=== PATIENT | male | born 1970 | race Caucasian/White ===

== ENCOUNTER → 2016-12-03 | Outpatient (CLI) | payer MEDICARE, OTHER ==
[~2016-12-03] MED LIST: ASPIRIN EC81 MG PO; PROTONIX40 MG PO; ZESTRIL40 MG PO
== END ==
LOC: LBRF 14:32 → RAD 14:32
DX: M15.9 Polyosteoarthritis, unspecified (principal); M50.322 Other cervical disc degeneration at C5-C6 level; M50.323 Other cervical disc degeneration at C6-C7 level
CPT/HCPCS: 72050; 72072

== ENCOUNTER → 2016-12-19 | Outpatient (CLI) | payer MEDICARE, OTHER ==
[2016-12-19 10:54] LABS: GLUCOSE,CSF 75 mg/dL (50-80); TOTAL PROTEIN,CSF 34 mg/dL (20-45)
== END ==
LOC: RAD 08:00
PROVIDERS: Nurse Practitioner
DX: G72.9 Myopathy, unspecified (principal); M15.9 Polyosteoarthritis, unspecified; M54.9 Dorsalgia, unspecified; I50.9 Heart failure, unspecified; M48.8X9 Other specified spondylopathies, site unspecified
CPT/HCPCS: 36415; 77003; 82040; 82784; 82945; 83873; 83916; 84157; 87015; 87070; 87116; 87205; 87210; 89051

== ENCOUNTER → 2020-08-31 | Outpatient (CLI) | payer MEDICARE, OTHER ==
[~2020-08-31] VITALS: Ht 182.9 cm; Wt 118.4 kg
[~2020-08-31] MED LIST changes: +AMBIEN10 MG PO; +ATORVASTATIN CA40 MG PO; +CYCLOBENZAPRINE10 MG PO; +GLUCOPHAGE XR500 MG PO; +IBUPROFEN600 MG PO; +LIPITOR TAB 2020 MG PO; +LISINOPRIL5 MG PO; +NEXIUM40 MG PO; +NITROGLYCERIN0.4 MG SL; +PAXIL40 MG PO; +PERCOCET 7.5-31 EACH PO; +RANEXA1000 MG PO; +SYNTHROID50 MCG PO; +TESTOSTERO200 MG/1 M IM; +TOPROL XL25 MG PO; +ZOFRAN ODT4 MG PO; +ZOLOFT25 MG PO; +[UNRECOGNIZED DRUG - OTHER] SQ
== END ==
LOC: OPSV 10:00
DX: M47.819 Spondylosis without myelopathy or radiculopathy, site unspecified (principal)
CPT/HCPCS: 96365; 96366; 96375; J1720; J7050; Q5103

== ENCOUNTER → 2020-10-02 | Outpatient (CLI) | payer MEDICARE, OTHER ==
[2020-10-02 13:44] LABS: RED BLOOD COUNT 5.17 M/UL (4.20-5.50); WHITE BLOOD COUNT 5.7 K/UL (4.5-11.0)
[2020-10-02 14:24] LABS: BUN/CREATININE RATIO 12 (0-10)
== END ==
LOC: LAB 12:57
PROVIDERS: Physician Assistant Medical
DX: Z51.81 Encounter for therapeutic drug level monitoring (principal); Z79.899 Other long term (current) drug therapy
CPT/HCPCS: 36415; 80053; 85025; 85652; 86140

== ENCOUNTER → 2020-10-12 | Outpatient (CLI) | payer MEDICARE, OTHER ==
[~2020-10-12] VITALS: Ht 182.9 cm; Wt 121.1 kg
== END ==
LOC: OPSV 10:13
DX: M47.819 Spondylosis without myelopathy or radiculopathy, site unspecified (principal)
CPT/HCPCS: 96365; 96366; 96374; 96375; J1720; J7050; Q5103

== ENCOUNTER → 2020-11-22 | Outpatient (CLI) | payer MEDICARE, OTHER ==
[~2020-11-22] VITALS: Ht 182.9 cm; Wt 118.4 kg
== END ==
LOC: OPSV 10:00
DX: M47.819 Spondylosis without myelopathy or radiculopathy, site unspecified (principal)
CPT/HCPCS: 96365; 96366; 96375; J1720; J7050; Q5103

== ENCOUNTER → 2021-01-07 | Outpatient (CLI) | payer MEDICARE, OTHER | LOC: HEART 5 09:12 | DX: I20.9 Angina pectoris, unspecified (principal); F41.9 Anxiety disorder, unspecified; I47.2 Ventricular tachycardia; I51.89 Other ill-defined heart diseases | CPT/HCPCS: 78452; A9502; J2785 ==

== ENCOUNTER → 2021-01-08 | Outpatient (CLI) | payer MEDICARE, OTHER ==
[~2021-01-08] VITALS: Ht 182.9 cm; Wt 118.4 kg
== END ==
LOC: OPSV 01-03 11:00
DX: M47.819 Spondylosis without myelopathy or radiculopathy, site unspecified (principal)
CPT/HCPCS: 96365; 96366; 96375; J1720; J7050; Q5103

== ENCOUNTER → 2021-04-17 | Outpatient (CLI) | payer MEDICARE, OTHER ==
[~2021-04-17] VITALS: Ht 182.9 cm; Wt 118.4 kg
== END ==
LOC: OPSV 10:38
DX: M45.9 Ankylosing spondylitis of unspecified sites in spine (principal)
CPT/HCPCS: 96365; 96366; 96375; J1720; J7050; Q5103

== ENCOUNTER → 2021-05-29 | Outpatient (CLI) | payer MEDICARE, OTHER ==
[~2021-05-29] VITALS: Ht 182.9 cm; Wt 118.4 kg
== END ==
LOC: OPSV 09:47
DX: M45.9 Ankylosing spondylitis of unspecified sites in spine (principal)
CPT/HCPCS: 96365; 96366; 96375; J1720; J7050; Q5103

== ENCOUNTER → 2021-07-10 | Outpatient (CLI) | payer MEDICARE, OTHER ==
[~2021-07-10] VITALS: Ht 182.9 cm; Wt 118.4 kg
== END ==
LOC: OPSV 09:00
DX: M45.9 Ankylosing spondylitis of unspecified sites in spine (principal); Z88.1 Allergy status to other antibiotic agents; Z88.8 Allergy status to other drugs, medicaments and biological substances
CPT/HCPCS: 96365; 96366; 96375; J1720; J7050; Q5103

== ENCOUNTER → 2021-08-08 | Outpatient (CLI) | payer MEDICARE, OTHER | LOC: OPSV 10:58 | DX: M45.9 Ankylosing spondylitis of unspecified sites in spine (principal) | CPT/HCPCS: 96365; 96375; J1602; J2920 ==

== ENCOUNTER → 2021-09-05 | Outpatient (CLI) | payer MEDICARE, OTHER ==
[~2021-09-05] VITALS: Ht 182.9 cm; Wt 118.4 kg
== END ==
LOC: OPSV 09:54
DX: M45.9 Ankylosing spondylitis of unspecified sites in spine (principal)
CPT/HCPCS: 96365; 96375; J1602; J2920

== ENCOUNTER → 2021-10-31 | Outpatient (CLI) | payer MEDICARE, OTHER | LOC: OPSV 09:54 | DX: M45.9 Ankylosing spondylitis of unspecified sites in spine (principal) | CPT/HCPCS: 96365; 96375; J1602; J2920 ==

== ENCOUNTER → 2021-11-01 | Outpatient (CLI) | payer MEDICARE, OTHER ==
[~2021-11-01] MED LIST changes: +BUPROPION HCL150 M1 PO; +CEPHALEXIN500 M1 PO; +CLINDAMYCIN HC300 MG PO
[2021-11-01 10:18] LABS: HEMOGLOBIN 15.1 gm/dl (14.0-17.5); RED BLOOD COUNT 4.97 M/UL (4.20-5.50); WHITE BLOOD COUNT 14.4 K/UL (4.5-11.0)
[2021-11-01 10:38] LABS: BUN/CREATININE RATIO 14 (0-10)
== END ==
LOC: LAB 09:45
PROVIDERS: Internal Medicine Cardiovascular Disease
DX: Z45.02 Encounter for adjustment and management of automatic implantable cardiac defibrillator (principal); I47.2 Ventricular tachycardia; I10 Essential (primary) hypertension
CPT/HCPCS: 36415; 71046; 80048; 85025; U0003

== ENCOUNTER → 2021-12-26 | Outpatient (CLI) | payer MEDICARE, OTHER ==
[~2021-12-26] VITALS: Ht 182.9 cm; Wt 118.4 kg
== END ==
LOC: OPSV 10:00
DX: M45.9 Ankylosing spondylitis of unspecified sites in spine (principal)
CPT/HCPCS: 96365; 96375; J1602; J2920

== ENCOUNTER → 2022-01-21 | Outpatient (CLI) | payer MEDICARE, OTHER | LOC: KOH-I 14:16 | DX: M25.572 Pain in left ankle and joints of left foot (principal); M25.571 Pain in right ankle and joints of right foot; M19.071 Primary osteoarthritis, right ankle and foot; M19.072 Primary osteoarthritis, left ankle and foot; M77.30 Calcaneal spur, unspecified foot | CPT/HCPCS: 73610; 73630 ==

== ENCOUNTER → 2022-02-20 | Outpatient (CLI) | payer MEDICARE, OTHER | LOC: OPSV 09:00 | DX: M45.9 Ankylosing spondylitis of unspecified sites in spine (principal) | CPT/HCPCS: 96365; 96375; J1602; J2920 ==

== ENCOUNTER 2022-05-01 16:12 | Emergency (ER) | payer MEDICARE, OTHER ==
[2022-05-01 18:16] LABS: HEMOGLOBIN 14.9 gm/dl (14.0-17.5); RED BLOOD COUNT 4.76 M/UL (4.20-5.50); WHITE BLOOD COUNT 7.2 K/UL (4.5-11.0)
[2022-05-01 18:43] LABS: BUN/CREATININE RATIO 13 (0-10)
[2022-05-01] MEDS ORDERED: HYDROCODON-ACE1 EAC4 PO (22:11)
[2022-05-01] MEDS ORDERED: TORADOL 10 MG T10 MG PO (22:18)
[2022-05-01] MEDS ORDERED: ZOFRAN ODT 4 MG4 MG SL (22:18)
== END 2022-05-01 22:42 | disposition home or self-care (01) ==
LOC: ER1 16:12
PROVIDERS: Family Medicine
DX: N13.2 Hydronephrosis with renal and ureteral calculous obstruction (principal); Z88.1 Allergy status to other antibiotic agents; Z88.8 Allergy status to other drugs, medicaments and biological substances; Z88.2 Allergy status to sulfonamides
CPT/HCPCS: 80053; 81001; 83605; 85025; 87040; 87086; 96361; 96374; 96375; 96376; 99284; J1170; J1885; J2405